=== PATIENT | female | born 2000 | race Caucasian/White ===

== ENCOUNTER 2022-04-20 02:31 | Emergency (ER) | payer OTHER ==
[2022-04-20 03:54] LABS: HEMOGLOBIN 12.9 gm/dl (12.3-15.3); RED BLOOD COUNT 4.33 M/UL (4.00-5.10); WHITE BLOOD COUNT 9.2 K/UL (4.5-11.0)
[2022-04-20 04:16] LABS: BUN/CREATININE RATIO 13 (0-10)
== END 2022-04-20 05:46 | disposition home or self-care (01) ==
LOC: ER1 02:31
PROVIDERS: Physician Assistant
DX: K62.5 Hemorrhage of anus and rectum (principal)
CPT/HCPCS: 80053; 81001; 83690; 83735; 84703; 85025; 87086; 99284